=== PATIENT | female | born 1970 | race Caucasian/White ===

== ENCOUNTER → 2021-10-11 | Outpatient (CLI) | payer OTHER | LOC: MC.RAD 09:28 | DX: Z12.31 Encounter for screening mammogram for malignant neoplasm of breast (principal); N63.10 Unspecified lump in the right breast, unspecified quadrant; N63.20 Unspecified lump in the left breast, unspecified quadrant ==

== ENCOUNTER → 2021-10-26 | Outpatient (CLI) | payer OTHER | LOC: MC.RAD 12:52 | DX: N64.9 Disorder of breast, unspecified (principal) ==

== ENCOUNTER → 2023-01-10 | Outpatient (CLI) | payer OTHER | LOC: MC.RAD 07:27 | DX: Z12.31 Encounter for screening mammogram for malignant neoplasm of breast (principal) ==